=== PATIENT | male | born 1995 | race Caucasian/White ===

== ENCOUNTER 2019-05-11 06:58 | Emergency (ER) | payer BC, OTHER ==
[~2019-05-11] VITALS: Ht 177.8 cm; Wt 90.7 kg
[2019-05-11] MEDS ORDERED: NS IV 1000 ML 1,000 ML IV STA ×2 (07:33→08:45)
[2019-05-11] MEDS ORDERED: KETOROLAC 30 MG/ML VIAL IVP STA (07:33)
[2019-05-11] MEDS ORDERED: diphenhydrAMINE 50 MG/ML INJ (BENADRYL) IVP STA ×2 (07:33→08:45)
[2019-05-11] MEDS ORDERED: ONDANSETRON 4 MG/2 ML (SDV) Z0FRAN IVP STA (07:33)
--- NOTE | 2019-05-11 07:55 | ED Headache ---
General Chief Complaint: Head/Cervical Problems Stated Complaint: MIGRAINE Nursing Triage Note: Patient c/o of a migraine. States that it began around 7pm last night and he has had no relief with the use of tylenol and ibuprofen. He also reports nausea, vomiting, and dizziness with the migraine. He states that he has a history of miraines but usually is able to get them under control. Nursing Sepsis Screen: No Definite Risk Source: patient History of Present Illness Date Seen by Provider: May 11, 2019 Time Seen by Provider: 07:18 Initial Comments 24 yo male presents with complaints of a migraine headache. 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 He usually is able to control them at home but this time it is been worse. It feels like his typical migraine headache just his not responding to his usual treatments. He has had dizziness with nausea and vomiting. He has pain in the typical site for his migraines. He has light sensitivity and sound sensitivity as well. He has been trying to drink fluids and rest over night but it was not improving. Finally this morning and came in to try and get some assistance with the migraine. It has been so long since he has had to come in that he does not know for sure what medicine he has gotten in the past to help. Allergies and Home Medications Allergies Coded Allergies: No Known Drug Allergies (Unverified , 05/11/19) Home Medications Ondansetron 4 Mg Tab.rapdis, 4 MG PO Q6H PRN for NAUSEA/VOMITING Prescribed by: NICK LOWE on 05/11/19 1008 Patient Home Medication List Home Medication List Reviewed: Yes Review of Systems Review of Systems Constitutional: No chills; dizziness; No fever Eyes: Blurred Vision, Photophobia Ears, Nose, Mouth, Throat: denies ear pain, denies ear discharge Respiratory: No cough Cardiovascular: No chest pain Gastrointestinal: nausea, vomiting Genitourinary: no symptoms reported Musculoskeletal: no symptoms reported Skin: no symptoms reported Psychiatric/Neurological: Headache; Denies Numbness, Denies Weakness Past Pdrlxpv-[id number]-Qwbrov Hx Past Med/Social Hx: Reviewed Nursing Past Med/Soc Hx Patient Social History Alcohol Use: Denies Use Recreational Drug Use: No Smoking Status: Never a Smoker 2nd Hand Smoke Exposure: No Recent Foreign Travel: No Contact w/Someone Who Travel: No Recent Infectious Disease Expo: No Recent Hopitalizations: No Physical Abuse: No Sexual Abuse: No Mistreated: No Fear: No Seasonal Allergies Seasonal Allergies: No Past Medical History Surgeries: No Respiratory: No Cardiac: No Neurological: Yes (Ateriovenous Malformation (AVM)) Genitourinary: No Gastrointestinal: No Musculoskeletal: No Endocrine: No HEENT: No Cancer: No Psychosocial: No Integumentary: No Blood Disorders: No Physical Exam Vital Signs Vital Signs - First Documented 05/11/19 07:11 Temp 97.8 Pulse 85 Resp 18 B/P (MAP) 127/67 (87) Pulse Ox 99 O2 Delivery Room Air Capillary Refill : Less Than 3 Seconds Height, Weight, BMI Height: 5'10.00" Weight: 200lbs. oz. 90.604527yl; BMI Method:Stated General Appearance: WD/WN, moderate distress HEENT: PERRL/EOMI, normal ENT inspection, pharynx normal Neck: non-tender, full range of motion, supple, normal inspection Cardiovascular: normal peripheral pulses, regular rate, rhythm Respiratory: chest non-tender, lungs clear, normal breath sounds, no respiratory distress, no accessory muscle use Gastrointestinal: normal bowel sounds, non tender, soft, no pulsatile mass Extremities: normal range of motion, non-tender, normal inspection, no pedal edema, normal capillary refill Psychiatric: alert, oriented x 3 Crainal Nerves: normal speech, PERRL Motor/Sensory: no motor deficit, no sensory deficit Skin: normal color, warm/dry Progress/Results/Core Measures Results/Orders My Orders Orders - NICK LOWE MD Iv/Invasive Line Insertion .IV start (05/11/19 07:33) Ns Iv 1000 Ml (Sodium Chloride 0.9%) (05/11/19 07:33) Ketorolac Injection (Toradol Injection) (05/11/19 07:33) Ondansetron Injection (Zofran Injectio (05/11/19 07:33) Diphenhydramine Injection (Benadryl Inje (05/11/19 07:33) Dexamethasone Injection (Decadron Inject (05/11/19 08:45) Diphenhydramine Injection (Benadryl Inje (05/11/19 08:45) Metoclopramide Injection (Reglan Injecti (05/11/19 08:45) Ns Iv 1000 Ml (Sodium Chloride 0.9%) (05/11/19 08:45) Vital Signs/I&O 05/11/19 05/11/19 07:11 10:19 Temp 97.8 97.8 Pulse 85 79 Resp 18 18 B/P (MAP) 127/67 (87) 102/63 (76) Pulse Ox 99 99 O2 Delivery Room Air Blood Pressure Mean: 87 Progress Progress Note #1: Progress Note Establish IV and give IVF for hydration, Toradol for pain, Zofran for nausea, Benadryl for nausea and dizziness. If he is not showing any improvement then will consider checking his head with a CT scan or labs to see if his AVM has changed or if he has any electrolyte or lab abnormality to account for his rainey and n/v. Progress Note #2: Progress Note On recheck the patient was stating that his pain was now down to 6 out of 10. He was much more comfortable. Will repeat the Benadryl and add in a dose of dexamethasone as well as Reglan to try and help with his symptoms. Will get an additional dose of IV fluids for hydration. Provided he has continued to improve will try and discharged to home after that. Progress Note #3: Progress Note On recheck his pain is now down to 1 or 2 and he is able to tolerate crackers and oral intake. Will discharge to home on some Zofran ODT. Counseled on follow- up and return precautions. Departure Impression Primary Impression: Headache, migraine, intractable Qualified Codes: G43.919 - Migraine, unspecified, intractable, without status migrainosus Disposition: 01 HOME, SELF-CARE Condition: Improved Departure-Patient Inst. Decision time for Depature: 10:07 Referrals: [facility] [place]: Migraine Headache (DC) Add. Discharge Instructions: Stay well hydrated and get plenty of rest Follow up with clinic for continued problems/concerns All discharge instructions reviewed with patient and/or family. Voiced understanding. Scripts Ondansetron (Ondansetron Odt) 4 Mg Tab.rapdis 4 MG PO Q6H PRN for NAUSEA/VOMITING for 3 Days, #12 TAB 0 Refills Prov: NICK LOWE MD 05/11/19 NICK LOWE MD May 11, 2019 07:55
[2019-05-11] MEDS ORDERED: DEXAMETHASONE 10 MG/ML (DECADRON) 1 ML VIAL IV STA (08:45)
[2019-05-11] MEDS ORDERED: METOCLOPRAMIDE INJ 10 MG/2 ML (REGLAN) IVP STA (08:45)
[2019-05-11] MEDS ORDERED: ONDA4TAB11 PO (10:08)
[2019-05-11 10:19] VITALS: BP 102/63
== END 2019-05-11 10:19 | disposition home or self-care (01) ==
LOC: ER FS 07:01
DX: G43.919 Migraine, unspecified, intractable, without status migrainosus (principal)
CPT/HCPCS: 96361; 96374; 96375; 96376